=== PATIENT | male | born 1950 | race Native Hawaiian/Other Pacific Islander ===

== ENCOUNTER 2020-06-27 19:08 | Outpatient (CLI) | payer OTHER ==
[2020-06-27 20:24] LABS: PLATELET COUNT 328 K/uL (142-355)
[2020-06-27 21:14] LABS: POTASSIUM 4.9 mmol/L (3.6-5.2); SODIUM 140 mmol/L (136-145)
== END 2020-06-27 23:41 | disposition home or self-care (01) ==
LOC: LAB 19:08
PROVIDERS: Family Medicine
DX: Z00.00 Encounter for general adult medical examination without abnormal findings (principal); I10 Essential (primary) hypertension; E78.49 Other hyperlipidemia; E03.8 Other specified hypothyroidism; F41.8 Other specified anxiety disorders; F32.89 Other specified depressive episodes; M19.90 Unspecified osteoarthritis, unspecified site; E55.9 Vitamin D deficiency, unspecified; R53.81 Other malaise; R53.83 Other fatigue; Z79.899 Other long term (current) drug therapy; Z12.5 Encounter for screening for malignant neoplasm of prostate
CPT/HCPCS: 80053; 80061; 82607; 82652; 84153; 84439; 84443; 85027; 86376